=== PATIENT | female | born 1955 | race African-American/Black ===

== ENCOUNTER 2017-01-04 03:47 | Inpatient (IN) | payer MEDICARE, OTHER ==
--- NOTE | ~2017-01-04 | CT57 ---
[facility] A Service of [facility] RADIOLOGY TEXT RESULTS PATIENT: RIC HERRERA LOCATION: C3A 333-01 : 59 UNIT #: [id number] AGE: [address]: Meredith Pan MD SEX: F ORDER DR: [id number] [facility] [address] [facility]. [place], [place] [address] [id number] I MR#: [id number] Acc #: [id number] NAME: RIC HERRERA : 1955 SEX: F STUDY DATE/TIME: 01/05/2017 16:31 UNIT: C3A PCU ROOM: 333 STUDY DESCRIPTION: CT Chest Wo Cont Attending Physician: Meredith Pan M.D. Ordering Physician: Meredith Pan M.D. Primary Care Physician: Primary Care Physician No MEDICAL IMAGING REPORT This report is preliminary unless electronic signature is present EXAM CT of the chest without contrast INDICATIONS Shortness of breath for 1 day. Patient arrived via EMS today on BiPAP. TECHNIQUE Axial CT images were obtained from the thoracic inlet through the dome of the diaphragm. No intravenous contrast material was administered. This CT exam was performed with one or more of the following radiation dose reduction techniques: Automatic exposure control, adjustment of mA and/or kV according to patient size, and iterative reconstruction. FINDINGS This patient has a right internal jugular vein tunneled dialysis catheter. There is cardiomegaly and fairly extensive ground-glass infiltrates which I think potentially may reflect some vascular congestion. Nonspecific pneumonitis would be another consideration. Patient does have a left upper lobe pulmonary nodule measuring about 9 mm in size. This has been present on exams dating back to 2015 and, thus, is felt to be benign. The thyroid gland is within normal limits. Trachea and esophagus also appear unremarkable. There are coronary artery calcifications. Thoracic aorta measures within normal size limits. There are trace bilateral pleural effusions, right greater than left, as well as some right basilar consolidation, which is favored to represent some atelectasis with some milder atelectasis noted at the left lung base. Dense calcifications are seen within the gallbladder and, in fact, the gallbladder wall does appear to be partially calcified; this has been seen on prior studies. Patient has a lipid-rich adrenal adenoma on the left, which is unchanged when compared to the prior exam. Kidneys are atrophic, in keeping with history of end-stage renal disease. No other acute STS. [facility] A Service of [facility] RADIOLOGY TEXT RESULTS PATIENT: RIC HERRERA LOCATION: C3A 333-01 : 59 UNIT #: [id number] AGE: [address]: Meredith Pan MD SEX: F ORDER DR: abnormalities are seen within the upper abdomen. Review of bony windows does not demonstrate any aggressive osseous abnormalities. IMPRESSION 1. Patient is noted to have marked cardiomegaly. There is interlobular septal thickening and some diffuse ground-glass infiltrates seen throughout the lungs. Findings certainly could reflect vascular congestion. Nonspecific pneumonitis would also be in the differential. 2. Trace bilateral pleural effusions right greater than left, as well as bibasilar atelectasis, right greater than left. 3. Right internal jugular vein tunneled dialysis catheter extends into the right atrium. 4. Lipid-rich left adrenal adenoma. 5. Cholelithiasis as well as dense calcification of the gallbladder wall. 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 Similar findings were present on prior study from November 2014, but certainly consideration for surgical consultation on a non-emergent outpatient basis could be considered. 6. Stable left upper lobe pulmonary nodule unchanged since November 2014, and thus is benign. Dictated by... Leann Hager M.D. THIS IS AN ELECTRONICALLY VERIFIED REPORT Leann Hager M.D. at 01/06/2017 5:27 PM AFF/psc TD: 01/05/2017 21:23 JOB #: [id number] MEDICAL IMAGING REPORT COPY
--- NOTE | ~2017-01-04 | CR72 ---
[facility] A Service of [facility] RADIOLOGY TEXT RESULTS PATIENT: RIC HERRERA LOCATION: A 333-01 : 59 UNIT #: [id number] AGE: [address]: Meredith Pan MD SEX: F ORDER DR: [id number] [place] [id number] [facility]. [place], [place] [address] [id number] MR#: [id number] Acc #: [id number] NAME: RIC HERRERA : 1955 SEX: F STUDY DATE/TIME: 01/04/2017 4:10 UNIT: CEDOF ROOM: 63046 STUDY DESCRIPTION: CR Chest Single View Portable Attending Physician: Meredith Pan M.D. Ordering Physician: Shaquille Mccall M.D. Primary Care Physician: Primary Care Physician No MEDICAL IMAGING REPORT This report is preliminary unless electronic signature is present EXAM Portable AP view of the chest COMPARISON December 28, 2014 and December 27, 2014. INDICATION 61-year-old female with dyspnea tonight requiring CPAP. FINDINGS Hemodialysis type catheter is noted with the tip terminating in the SVC at the level of the cavoatrial junction. There is no evidence of pneumothorax. Heart size appears normal but there are increased interstitial opacities throughout the lungs with pulmonary vascular indistinctness. Given ongoing dialysis, this may represent noncardiogenic pulmonary edema. There may be minimal trace left pleural effusion. No pneumothorax. IMPRESSION 1. Adequate position of right internal jugular approach hemodialysis catheter with the tip terminating near the cavoatrial junction. 2. Diffuse opacities throughout the lungs with normal heart size. The appearance, however, would suggest diffuse pulmonary edema, possibly due to fluid overload in this hemodialysis patient. Infection cannot entirely be excluded. Clinical correlation recommended. Questionable trace left pleural effusion. Dictated by... Mikel Johnston M.D. THIS IS AN ELECTRONICALLY VERIFIED REPORT Mikel Johnston M.D. at 01/09/2017 8:59 PM ANJU/kartik [facility] A Service [facility] RADIOLOGY TEXT RESULTS PATIENT: RIC HERRERA LOCATION: [facility] 333-01 : 59 UNIT #: [id number] AGE: [address]: Meredith Pan MD SEX: F ORDER DR: TD: 01/04/2017 09:30 JOB #: [id number] MEDICAL IMAGING REPORT COPY
--- NOTE | ~2017-01-04 | US146 ---
[facility] A Service of [facility] RADIOLOGY TEXT RESULTS PATIENT: RIC HERRERA LOCATION: C3A PC : 59 UNIT #: [id number] AGE: [address]: Meredith Pan MD SEX: F ORDER DR: [id number] [facility] [address] [facility] [place], [place] [address] [id number] I MR#: [id number] Acc #: [id number] NAME: RIC HERRERA : 1955 SEX: F STUDY DATE/TIME: 01/05/2017 20:58 UNIT: C3A PCU ROOM: [address] [place] [address] DESCRIPTION: US Vein Map Hemodial Access Attending Physician: Meredith Pan M.D. Ordering Physician: Stefano Merchant Jr., M.D. Primary Care Physician: Primary Care Physician No MEDICAL IMAGING REPORT This report is preliminary unless electronic signature is present EXAM Ultrasound vein mapping for hemodialysis access DATE 01/05/2017 HISTORY Right AV fistula rupture in September 2016. Chronic kidney disease on dialysis. FINDINGS The patient refused to allow the technologist to scan the right arm. The patient stated that if the right arm was scanned, she would refuse the examination. Therefore, the technologist complied with the patient's wishes and only examined the left arm. Measurements submitted in this report are in mm. Left cephalic vein upper segment proximal 1.5, mid 1.1, distal 0.8, elbow 0.9. Left cephalic vein lower segment proximal 2.6, mid 2, distal 1.2. Left basilic vein upper segment proximal 3.4, mid 3.5, distal 4.7, at elbow 4.3. Left basilic vein lower segment proximal 4.3, mid 2.8, distal 2.3. No thrombus is seen. IMPRESSION 1. The patient refused to allow the technologist to scan the right arm. [facility] A Service [facility] RADIOLOGY TEXT RESULTS PATIENT: RIC HERRERA LOCATION: C3A : 59 UNIT #: [id number] AGE: [address]: Meredith Pan MD SEX: F ORDER DR: 2. Left upper extremity vein mapping measurements as described above in the report. Dictated by..Anya Park/joelle TD: 01/06/2017 02:24 JOB #: [id number] MEDICAL IMAGING REPORT
--- NOTE | ~2017-01-04 | HP ---
Unit #: [id number] #: [id number] Patient: RIC HERRERA [id number] [address] [place], [place] [address] [id number] I MR#: [id number] NAME: RIC HERRERA ROOM: 47036 Age: 61 Sex: F Admission Date: 01/04/2017 : 1955 Attending Physician: Meredith Pan M.D. Primary Care Physician: No Primary Care Physician HISTORY AND PHYSICAL CHIEF COMPLAINT Shortness of breath. HISTORY OF PRESENT ILLNESS Ms. Herrera is a 61-year-old -[place] female who presents to the emergency department with shortness of breath. The patient is maintained on hemodialysis Monday, Monday, Monday and states she has been compliant with hemodialysis. She last went on Monday, January 02, and completed the whole course of treatment. She states abruptly last night at approximately 8 p.m., she became short of breath. She had, perhaps, mild productive cough a few days prior to that given her grandchildren had been sick. She denied any fever at home. She denied any chest pain. She does not endorse any new lower extremity edema. Upon arrival to the emergency department, patient was tachycardic with a heart rate of 124 and temperature was 100.2. The patient arrived on BiPAP via EMS. Blood work reveals a mildly elevated white blood cell count of 13.3 and chest x-ray is most consistent with pulmonary edema. The patient was given a gram of Tylenol and subsequently has been admitted. She states she is feeling much better since being on the BiPAP. Again, she denies any other symptoms. The patient has a history of AIDS and has not taken her highly active antiretroviral therapy since July and was previously followed at the [facility]. She does not know her CD4 count. PAST MEDICAL HISTORY 1. AIDS. Again, patient is followed at the [address] [place] [address]. She has not taken any medication since the fall of 2015. Her last known CD4 count to us was 121 in 2014 and she does not recall her most recent CD4 count. 2. End stage renal disease, maintained on hemodialysis Monday, Monday, Monday. She has seen Dr. Lopez in the past. 3. Hypertension. 4. Chronic diastolic congestive heart failure. Her echocardiogram in 2015 revealed an ejection fraction of 65%. 5. Pulmonary hypertension, per record review. However, right ventricular systolic pressure is not reported on echocardiogram from 2015. 6. Prior history of stroke. 7. Medical noncompliance. 8. Tobaccoism. PAST SURGICAL HISTORY 1. AV fistula formation of right upper extremity. 2. Bronchoscopy in November 2014 which revealed right lower lobe mucus plugging. Unit #: [id number] #: [id number] Patient: RIC HERRERA ALLERGIES No known drug allergies. MEDICATIONS Home medications I believe at this time are essentially none. Records from patient's pharmacy indicate she was previously takin. Norvasc 10 mg daily. 2. Colace, one tablet b.i.d. 3. [place] 5/325, one tablet q.6 hours p.r.n. for pain. 4. Lamivudine 100 mg, half a tablet daily. 5. Lisinopril 40 mg p.o. daily. 6. Magnesium oxide 400 mg daily. 7. Metoprolol succinate 100 mg daily. 8. Norvir 100 mg daily. 9. Reyataz 300 mg daily. I will note - Reyataz, Norvir, metoprolol, lamivudine do appear to have been last filled in April 2016 and she may have had three months prescriptions. Norvasc has not been filled since April 2016 and lisinopril was filled in October 2016. FAMILY HISTORY Significant for hypertension. SOCIAL HISTORY Patient does drink alcohol socially. She smokes about three cigarettes per day and states she smoked for "a long time" which I anticipate is several decades. She denies any illicit drug use. REVIEW OF SYSTEMS GENERAL: She states she has been losing weight despite eating more. Again, she denies any chest pain, palpitations, orthopnea. Does have mild cough. No constipation, diarrhea, melena, hematochezia. No headache, no sore throat, no fever prior to presentation here. No new joint pain, no new rashes, no falls. Otherwise, ten point review of systems was reviewed and is negative. PHYSICAL EXAMINATION VITAL SIGNS: Temperature 100.2, blood pressure 162/94, initial pulse rate 124, now down to 73, respiratory rate 21. Oxygen saturations are 100% on BiPAP at 14/6. GENERAL: The patient is awake, alert, oriented x3. HEENT: Pupils equally round, reactive to light bilaterally. Anicteric sclerae. No conjunctival pallor. Missing several teeth. Otherwise, oral examination cannot be done given patient is on BiPAP. NECK: Supple. No lymphadenopathy, no thyromegaly, no appreciable JVD. HEART: Regular rate and rhythm without murmur, rub or gallop. LUNGS: Crackles in all four lung ness posteriorly. ABDOMEN: Soft, nontender, nondistended. Positive bowel sounds. No appreciable hepatosplenomegaly. EXTREMITIES: No cyanosis. Mild clubbing and 1+ pitting edema. Pedal pulses 2/4. SKIN: Warm, it is dry. No appreciable rash. NEUROLOGICAL: Cranial nerves II-XII intact. Sensation, strength and deep tendon reflexes grossly appear normal on examination. Gait was not assessed. MUSCULOSKELETAL: No significant joint abnormalities noted. Unit #: [id number] #: [id number] Patient: RIC HERRERA PSYCHIATRIC: Alert and oriented x3. No suicidal or homicidal ideation. DIAGNOSTIC STUDIES LABORATORY: Lab work done in the emergency department reveals sodium 138, potassium 4.5, chloride of 101, bicarb 24, BUN 37, creatinine of 10.1, glucose of 204. White blood cell count 13.3, hemoglobin 12.6, platelet count of 268,000. Troponin was negative. An influenzae swab was also negative. Lactic acid mildly elevated at 2.8. CARDIOVASCULAR: EKG reveals a mildly prolonged QT of [address] other acute ST or T wave abnormalities. Chest x-ray reveals what appears to be significant pulmonary edema. ASSESSMENT 1. Acute hypoxic respiratory failure. 2. Acute pulmonary edema. 3. Systemic inflammatory response syndrome versus sepsis. 4. Questionable pneumonia. 5. AIDS with unknown CD4 count and medical noncompliance. 6. End stage renal disease, maintained on hemodialysis Monday, Monday, Monday. 7. History of diastolic congestive heart failure. 8. Hyperglycemia. 9. Hypertension. 10. History of pulmonary hypertension. 11. Tobaccoism. 12. History of stroke. 13. Medical noncompliance. PLAN 1. Will admit patient to ICU given she is being maintained on BiPAP. However, I will note she is refusing blood draws including blood cultures and ABGs at this time. I am going to ask Dr. Perez to evaluate the patient for his clinical opinion. I am going to recheck chest x-ray following hemodialysis and, if there is significant clearing, indeed this is primarily pulmonary edema. If patient continues to improve prior to hemodialysis, I may try on Oxymizer and place her back on BiPAP if she becomes increasingly hypoxic. 2. Will consult Dr. Merchant in regards to patient's end stage renal disease and dialysis orders have already been placed for today. 3. I am going to empirically give patient a dose of vancomycin and start her on Zosyn given it is unclear whether she has pneumonia particularly given this mildly elevated temperature and her white blood cell count. However, these both may simply be reactive in origin. Will obtain sputum gram stain and culture and, again, patient is refusing blood cultures. Will also try to get copy of most recent CD4 count from the [facility] given this may change the differential diagnosis for this patient. 4. Will obtain most recent CD4 count here and again last note from [facility] patient on Accu-Cheks a.c. and h.s. with associated low dose sliding scale in regards to hyperglycemia. 6. Will place patient on Norvasc 5 mg daily and monitor blood pressure. 7. Will get copy of most recent echo to chart. Perhaps there is one more recent than 2015. 8. DVT and GI prophylaxis. Unit #: [id number] #: [id number] Patient: RIC HERRERA Time spent on ICU admission - 47 minutes. Dictated by Meredith Pan M.D. PAULINA/josee TD: 01/04/2017 09:07 JOB #: [id number] HISTORY AND PHYSICAL X Meredith Pan MD X HISTORY AND PHYSICAL
--- NOTE | ~2017-01-04 | CR72 ---
[facility] A Service of [facility] RADIOLOGY TEXT RESULTS PATIENT: RIC HERERRA LOCATION: [facility] 333-01 : 59 UNIT #: [id number] AGE: [address]: Meredith Pan MD SEX: F ORDER DR: [id number] [facility] [address] [facility]. [place], [place] [address] [id number] MR#: [id number] Acc #: [id number] NAME: RIC HERRERA : 1955 SEX: F STUDY DATE/TIME: 01/05/2017 5:48 [facility] STUDY DESCRIPTION: CR Chest Single View Portable Attending Physician: Meredith Pan M.D. Ordering Physician: Josse Perez M.D. Primary Care Physician: Primary Care Physician No MEDICAL IMAGING REPORT This report is preliminary unless electronic signature is present EXAM Portable chest 01/05/2017 INDICATION Shortness of air, cough, symptoms for 2 nights. COMPARISON 01/04/2017. FINDINGS This portable view of the chest is compared with yesterday's study. There has been an improvement in the bilateral interstitial prominence. Some still remains but is definitely decreased. There is blunting of the left costophrenic angle. The central venous catheter is in good position. The heart is mildly enlarged. Dictated by... Cory Malone M.D. THIS IS AN ELECTRONICALLY VERIFIED REPORT Cory Malone M.D. at 01/05/2017 10:06 AM LIZETH/iesha TD: 01/05/2017 08:21 JOB #: [id number] MEDICAL IMAGING REPORT COPY
--- NOTE | ~2017-01-04 | CO ---
Unit #: [id number] #: [id number] Patient: RIC HERRERA [id number] [facility] [address] [facility]. [place], [place] [address] [id number] MR#: [id number] NAME: RIC HERRERA ROOM: 333 Age: 61 Sex: F Admission Date: 01/04/2017 : 1955 Attending Physician: Meredith Pan M.D. Primary Care Physician: Primary Care Physician No Consultation Date: 01/05/2017 CONSULTATION REPORT for Jese Muhammad M.D. REASON FOR CONSULTATION Hemodialysis access. HISTORY OF PRESENT ILLNESS This is a 61-year-old, female, currently admitted to [facility] with an episode of shortness of air. She has a history of end-stage renal disease and has previously seen Dr. Talamantes in the past. The patient reports she was visiting a friend in [place] in 08/2016 when "my fistula exploded." Observing her right arm scars, it appears that her previous right arm fistula was a right brachial basilic fistula. She also has an extensive scar extending down her right forearm, which she reports was utilized and created during the fistula ligation. She reports a vein was taken from the forearm to use for the repair. No operation reports available for that surgery as that was done in [place]. The patient reports that she had a right subclavian hemodialysis access twice in [place] at that time as well. She reports she was went back to Dr. Talamantes one time after her fistula ligation and tunneled catheter placement; however, her insurance changed and she was unable to go back for creation of a new dialysis access and has been using the tunneled catheter since 08/2016. She dialyzes on Monday, Monday, and Monday. Ms. Herrera is right handed. PAST MEDICAL HISTORY Significant for; 1. HIV. 2. End-stage renal disease. 3. Hypertension. 4. Tobacco use. 5. Noncompliance with medical therapy. 6. Previous right brachial basilic fistula placement. 7. Congestive heart failure. ALLERGIES No known drug allergies. MEDICATIONS The patient has no home medications listed. Previously she had been on a regimen documented as Norvasc, Colace, lamivudine, lisinopril,magnesium, metoprolol, Norvir, Reyataz, however, she has failed to obtain these prescriptions for several months. SOCIAL HISTORY Unit #: [id number] #: [id number] Patient: RIC HERRERA The patient resides in [place]. She denies alcohol or drug use. She reports a history of smoking approximately 3 to 4 cigarettes daily. FAMILY HISTORY Mother and father both alive. No health history volunteered for mother and father. REVIEW OF SYSTEMS GENERAL: No fever, chills, or sweats. HEENT: Eyes; negative. Ear, nose, mouth, and throat; negative. RESPIRATORY: Shortness of air on admit. CARDIOVASCULAR: Negative. GASTROINTESTINAL: Negative. GENITOURINARY: Negative. HEME/LYMPH: Negative. ENDOCRINE: Negative. MUSCULOSKELETAL: Negative. INTEGUMENTARY: Negative. NEUROLOGIC: Negative. PSYCHIATRIC: Negative. PHYSICAL EXAMINATION VITAL SIGNS: Include temperature 98.2, heart rate 75, respirations 20, O2 saturation 99%, blood pressure 219/122 documented at 8:15 a.m. GENERAL APPEARANCE: Well-developed, well-nourished female, in no acute distress. Fair historian. Relatively stoic. Answers questions when prompted, but does not willingly volunteer information. HEENT: Normocephalic. Pupils equal, round, and reactive. NECK: No carotid bruits noted on auscultation. CARDIAC: Regular rate and rhythm. No murmurs noted. LUNGS: Crackles noted in all ness. The patient is on 5 L Oxymizer for oxygenation. Respirations are nonlabored. ABDOMEN: Positive bowel sounds. Soft, nontender. No distention. MUSCULOSKELETAL: Moves all extremities with full range of motion. EXTREMITIES: Upper extremity, well-healed scar along the inner right arm extending down through the forearm. Right brachium distal scar has a small lump in the midportion which has a palpable pulse, but no thrill. Lower extremities, skin is dry. No deformity is noted. No edema. VASCULAR: Palpable radial and femoral pulses bilaterally. DP/PT pulses are not assessed as the patient is wearing shoes and was unwilling to remove them for the exam. INTEGUMENTARY: Overall skin is warm and dry. Lower extremity skin, dry and scaly. No obvious sores, lesions, or nonhealing wounds. NEUROLOGIC: Cranial nerves II through XII grossly intact. Normal strength and sensation bilaterally. PSYCHIATRIC: Oriented to person, place, and time. DIAGNOSTIC STUDIES IMAGING STUDIES: Vein mapping pending. LABORATORY RESULTS: Sodium 138, potassium 4.5, chloride 101, bicarb 24, BUN 37, creatinine 10.1, glucose 204. INR 1. Hemoglobin 11.3, hematocrit 34.4, WBC 6.1, and platelets 156. ASSESSMENT AND PLAN 1. End-stage renal disease. 2. Need for hemodialysis access. 3. Status post right tunneled dialysis catheter placement in 08/2016. Unit #: [id number] #: [id number] Patient: RIC HERRERA 4. Monday, Monday, and Monday hemodialysis. IMPRESSION The patient will need vein mapping of her bilateral upper extremities. The patient reports she does not want any further access in her right arm as she is right handed. I suspect her vasculature will be small in her left arm, given the fact that the patient is right handed and underwent right brachial basilic fistula creation initially. Vein mapping will determine if her left arm veins are adequate for fistula creation; however, if they proved to be too small, we can consider shunt placement. The patient has the tunneled catheter in her right subclavian which can continued to be used for hemodialysis. If she is close to discharge, we can arrange for long-term dialysis access creation surgery on an outpatient basis; however, if she remains hospitalized, we will work towards surgery this admission. Thank you for allowing us to participate in the care of this patient. Dictated byNitesh. Jose Luis Gil APRN for Anya Dixon/angela TD: 01/06/2017 06:18 JOB #: [id number] CONSULTATION REPORT X X CONSULTATION REPORT
--- NOTE | ~2017-01-04 | CO ---
Unit #: [id number] #: [id number] Patient: RIC HERRERA [id number] [address] [address] [id number] I MR#: [id number] NAME: RIC HERRERA ROOM: 333 Age: 61 Sex: F Admission Date: 01/04/2017 : 1955 Attending Physician: Meredith Pan M.D. Primary Care Physician: No Primary Care Physician Consultation Date: 01/04/2017 CONSULTATION REPORT REASON FOR CONSULTATION Shortness of breath, abnormal chest x-ray. HISTORY OF PRESENT ILLNESS 61-year-old female who has HIV, noncompliant with medications at home, end stage kidney disease with stated compliance with dialysis. She did admit to increasing shortness of breath and she would be placed on intermittent oxygen at dialysis. Generally, her shortness of breath would improve after dialysis. There was no documented hypoxemia per her history. She denies fever, sputum production, hemoptysis, chest pain, pleurisy. She initially was on BiPAP, now she is on nasal cannula Oxymizer and saturations are 100%. PAST MEDICAL HISTORY 1. HIV/AIDS. 2. End stage kidney disease. 3. Diastolic heart failure. 4. Past history of stroke. 5. Tobacco abuse. 6. Of note, she did undergo a bronchoscopy in November 2014 which was negative for immunocompromised infections. MEDICATIONS Medications at home - she really was not taking any medications. She is on no inhaled medications at home and no oxygen at home. ALLERGIES No known medical allergies. FAMILY HISTORY Hypertension. SOCIAL HISTORY She does smoke. REVIEW OF SYSTEMS She denies any change in her diet. No abdominal pain, melena, hematochezia, hematuria, dysuria, focal weakness, paresthesias, leg pain, swelling, fever, chills. There may have been some weight loss. Further review of systems negative. PHYSICAL EXAMINATION GENERAL: Reveals a patient who is very comfortable on nasal cannula Oxymizer. Unit #: [id number] #: [id number] Patient: RIC HERRERA VITAL SIGNS: T-max is 100.2, pulse 73, respiratory rate 21, blood pressure is 162/94. She is 5 foot 7, 167 pounds. HEENT: Pupils equal, round, reactive to light. Sclerae anicteric. Head atraumatic. Neck supple. No supraclavicular or cervical adenopathy appreciated. Mucous membranes moist. CHEST: Crackles bilaterally. No consolidation, no wheeze. CARDIAC EXAMINATION: Reveals regular rate and rhythm. No pathologic murmur, rub or gallop. ABDOMEN: Soft, nontender. No hepatomegaly or rebound. EXTREMITIES: No clubbing, cyanosis or edema. No calf tenderness. SKIN: Warm and dry without rash or diaphoresis. NEUROLOGICAL: Grossly intact. DIAGNOSTIC STUDIES LABORATORY: She had a BUN of 37, creatinine of 10.1. BNP 2625. INR normal. White blood cell count 13, hemoglobin 12.6, platelet count 268. Flu screen negative. Blood cultures were ordered but the patient refused and, in fact, she refused any other blood workup. In fact, she has been refusing repeat temperature, etc. IMAGING: Chest x-ray consistent with pulmonary edema. CARDIOVASCULAR: EKG - sinus tachycardia. Possible biatrial enlargement. No definite acute ischemic changes. IMPRESSION 1. Shortness of breath, most likely pulmonary edema. 2. Chest x-ray consistent with pulmonary edema. 3. HIV, low grade temp, consider pneumonia. 4. Noncompliant with medications and now refusing testing and even vital signs. 5. End stage kidney disease. 6. Medical problems listed above. PLAN Urgent dialysis, antibiotics for now. Oxygen to maintain adequate saturations. She will be re-evaluated after dialysis. Certainly, if she continues to be febrile and has pulmonary infiltrates, bronchoscopy would be indicated and this has been briefly discussed with the patient. If her pulmonary infiltrates resolve and her fever resolves, then my guess is this is all related to pulmonary edema and I would consider more aggressive volume removal in the future. Thank you very much for allowing me to participate in the care of this patient. Dictated by... Josse Perez M.D. Unit #: [id number] #: [id number] Patient: RIC HERRERA STEWART/josee TD: 01/05/2017 06:41 JOB #: [id number] CONSULTATION REPORT X Josse Perez MD X CONSULTATION REPORT
--- NOTE | ~2017-01-04 | CR63 ---
[facility] A Service of [facility] & [facility] RADIOLOGY TEXT RESULTS PATIENT: RIC HERRERA LOCATION: C3A 333-01 : 59 UNIT #: [id number] AGE: [address]: Meredith Pan MD SEX: F ORDER DR: [id number] [facility] [address] [facility]. [place], [place] [address] [id number] MR#: [id number] Acc #: [id number] NAME: RIC HERRERA : 1955 SEX: F STUDY DATE/TIME: 01/04/2017 14:59 UNIT: A U ROOM: [facility] STUDY DESCRIPTION: CR Chest 2 View Attending Physician: Meredith Pan M.D. Ordering Physician: Meredith Pan M.D. Primary Care Physician: Primary Care Physician No MEDICAL IMAGING REPORT This report is preliminary unless electronic signature is present EXAM PA and lateral chest, 01/04/2017 at 14:59 HISTORY 61-year-old female with respiratory failure starting last night. Patient has shortness of breath and chest pain. Cough also present. FINDINGS In comparison to the previous exam of 01/04/2017 at 04:10 hours there has been no change in the right subclavian central line. The heart remains borderline normal in size and no new pulmonary infiltrate or opacity is seen. No pneumothorax or pleural effusion is noted. Atelectasis in the left lung base is present. This is unaltered from the previous. IMPRESSION Stable chest with no new pulmonary infiltrate or opacity. Heart remains borderline enlarged and right subclavian central catheter in place. STAT * RESULT Dictated by... Sam Daniel M.D. THIS IS AN ELECTRONICALLY VERIFIED REPORT Sam Daniel M.D. at 01/04/2017 8:44 PM Yris TD: 01/04/2017 15:31 JOB #: [id number] MEDICAL IMAGING REPORT COPY
--- NOTE | ~2017-01-04 | EKG ---
PATIENT: RIC HERRERA UNIT #: [id number] Ventricular Rate: 103 BPM Atrial Rate: 103 BPM P-R Interval: 146 ms QRS Duration: 88 ms Q-T Interval: 388 ms QTC Calculation(Bezet): 508 ms P [place]: 60 degrees Calculated R [place]: 21 degrees Calculated T [place]: 81 degrees Diagnosis Line: Sinus tachycardia Diagnosis Line: T wave abnormality, consider anterolateral Diagnosis Line: ischemia Abnormal ECG Diagnosis Line: When compared with ECG of 04-JAN-2017 03:27, Diagnosis Line: (unconfirmed) Diagnosis Line: No significant change was found Diagnosis Line: Confirmed by NOEMY FOREMAN MD ([id number]) on 01/05/2017 Diagnosis Line: 11:15:06 AM INTERPRETING MD: AHSAN FLORENTINO
--- NOTE | ~2017-01-04 | CO ---
Unit #: [id number] #: [id number] Patient: RIC HERRERA [id number] [facility]. [place], [place] [address] [id number] Freda MR#: [id number] NAME: RIC HERRERA ROOM: 333 Age: 61 Sex: F Admission Date: 01/04/2017 : 1955 Attending Physician: Meredith Pan M.D. Primary Care Physician: No Primary Care Physician Consultation Date: 01/04/2017 CONSULTATION REPORT NEPHROLOGY CONSULTATION REASON FOR CONSULT Dialysis needs. HISTORY OF PRESENT ILLNESS Ms. Herrera is a 61-year-old -Maldivian female well known to me as I see her at the dialysis unit at [facility] on her Monday, Monday, Monday schedule, who presented to the hospital with shortness of breath. The patient states that she has been to dialysis both Monday and Monday. I did discuss with the dialysis staff this morning and patient has been reluctant to take extra fluid off despite her coming in with shortness of breath and hypertension. I was called overnight for the chest x-ray findings of pulmonary edema and have ordered dialysis. Dialysis is still pending this morning. She was initially on BiPAP and breathing well on oxygen per nasal cannula at this time. She denies any chest pain. No urinary complaints. She does have some swelling. No chills present. The patient does have a history of noncompliance, in particular with blood pressure medication. Also, per the admission note, she has been off of her HIV medicines for several months. She is usually followed in the [facility]. PAST MEDICAL HISTORY Significant for: 1. End stage renal disease. 2. Hypertension. 3. AIDS. 4. Chronic diastolic congestive heart failure. 5. Pulmonary hypertension. 6. History of stroke. 7. History of noncompliance. 8. Tobacco abuse. 9. History of pneumonia and respiratory failure in the past. PAST SURGICAL HISTORY 1. AV fistula in the right arm which had to be tied off due to a bleed. 2. History of bronchoscopy. MEDICATIONS Home medication list is currently being obtained. Again, she is not taking any of her HIV medication. BP meds are amlodipine 10 mg a day, lisinopril either 20 or 40 mg daily, and metoprolol XL 100 mg a day. ALLERGIES Unit #: [id number] #: [id number] Patient: RIC HERRERA She has no known drug allergies. FAMILY HISTORY Significant for hypertension. SOCIAL HISTORY The patient does drink occasionally. She continues to smoke. She denies drug use. REVIEW OF SYSTEMS A complete twelve point review of systems was completed with the above findings. In addition, she denies any headaches, no sinus drainage, no sore throat or earache, no chest pain or palpitations. Some cough, no hemoptysis. Denies nausea, vomiting or diarrhea. No rash or itching. No flank pain. She has had a low grade fever here in the ER. No bleeding issues, no recent weight changes. Unless otherwise indicated, the review of systems was negative. PHYSICAL EXAMINATION VITAL SIGNS: Temp 100.2, pulse 66, respiratory rate 18, blood pressure 161/78. Blood pressure was as high as 204/114 on admission. GENERAL: This is a pleasant 61-year-old -Maldivian female sitting in bed comfortable, in no acute distress. HEENT: Head is atraumatic, normocephalic. Eyes show pink conjunctivae but no scleral icterus. No nasal drainage or nose bleed. Oropharynx is moist. NECK: No rigidity. HEART: Regular rate and rhythm with no significant murmur or rub appreciated. LUNGS: Scattered rales bilaterally without wheezing. Breathing is nonlabored at rest. ABDOMEN: Soft, nontender. Bowel sounds are present. EXTREMITIES: No lower extremity clubbing or cyanosis. She has 1+ pitting edema below the knees bilaterally. SKIN: Without rashes. VASCULAR EXAM: The patient has a tunneled catheter in her chest without drainage. She has an old tied off fistula in the right arm with scar. NEUROLOGICAL EXAM: No focal deficits. PSYCHIATRIC EXAM: Mood and affect appear normal. DIAGNOSTIC STUDIES IMAGING: Chest x-ray showed diffuse pulmonary edema. Flu screen was negative. BNP was 2600. CBC showed a white count of 13, hemoglobin of 12, platelet count 268. Chemistry - sodium 138, potassium 4.5, bicarb 24. BUN and creatinine were 37 and 10 respectively. Lactic acid was 2.8. INR 1. Troponin negative. ASSESSMENT AND PLAN 1. End stage renal disease: I have ordered dialysis for today and will also order it for tomorrow for excess volume. The patient is agreeable. 2. Hypertension: We will resume her home medicines and pull fluid as her blood pressure allows. 3. Anemia of chronic disease: Hemoglobin is noted and there is no need for any Epogen at this time. 4. HIV with AIDS: CD4 count is pending. Unit #: [id number] #: [id number] Patient: RIC HERRERA 5. Tobacco abuse. 6. Questionable pneumonia with elevated white count and elevated lactic acid level. Antibiotics have been started. 7. Pulmonary hypertension. 8. History of stroke. 9. History of noncompliance. 10. Patient does need a fistula for dialysis. She would like to change her vascular surgery team over to [place]. I will ask them to see and see if a fistula can be placed as an outpatient. I would like to thank Dr. Gabi Pan for this consultation and the opportunity to participate in the evaluation and care of Ms. Herrera. Dictated by... Stefano Merchant Jr., MPeggy. TIFFANY/josee TD: 01/05/2017 08:08 JOB #: [id number] CONSULTATION REPORT X Stefano Merchant MD CONSULTATION REPORT
--- NOTE | ~2017-01-04 | DS ---
Unit #: [id number] #: [id number] Patient: RIC HERRERA [id number] [address] [address] [id number] I MR#: [id number] NAME: RIC HERRERA ROOM: 333 Age: 61 Sex: F Admission Date: 01/04/2017 : 1955 Discharge Date: 01/06/2017 Attending Physician: Meredith Pan M.D. Primary Care Physician: No Primary Care Physician DISCHARGE SUMMARY PRINCIPAL DIAGNOSES 1. Acute hypoxic respiratory failure secondary to pulmonary edema. 2. Pulmonary edema secondary to noncompliance with hemodialysis. 3. Acute bronchitis. 4. Sepsis secondary to acute bronchitis versus pneumonia. 5. Acquired immunodeficiency syndrome with unknown CD4 count and noncompliance with highly active antiretroviral therapy. 6. Endstage renal disease, maintained on hemodialysis Monday, Monday and Monday. 7. Hyperglycemia with likely underlying insulin resistance versus diabetes mellitus type 2. 8. Hypertension, uncontrolled. 9. Chronic diastolic congestive heart failure with ejection fraction of 65%. 10. Pulmonary hypertension. 11. Tobaccoism. 12. Medical noncompliance. 13. Abnormal appearance of gallbladder on computed tomographic scan of the chest. CONSULTANTS 1. Dr. Merchant, nephrology. 2. Dr. Perez, pulmonology. 3. Dr. Samuel, vascular surgery. PROCEDURES Emergent hemodialysis, which the patient tolerated without complication. DIAGNOSTIC STUDIES IMAGING: Chest x-ray on January 04, 2017 with diffuse opacities throughout the lung consistent with edema. Chest x-ray on January 04, 2017 with no acute pulmonary infiltrate. Chest x-ray on January 05, 2017 with significant improvement in interstitial prominence. CT of the chest without contrast on January 05, 2017 with cardiomegaly with interlobular thickening and diffuse ground glass infiltrates throughout both lungs. Trace bilateral pleural effusions, right greater than left noted. Right internal jugular vein tunneled hemodialysis catheter note. Lipid-rich adrenal adenoma noted. Cholelithiasis and dense calcification of the gallbladder wall. Unit #: [id number] #: [id number] Patient: RIC HERRERA CLINICAL HISTORY AND HOSPITAL COURSE Ms. Herrera is a 61-year-old female on chronic hemodialysis who presented to the emergency department with shortness of breath. She arrived via EMS on BiPAP therapy due to significant hypoxia and altered mental status. The patient was found to be mildly febrile in the emergency department and was also tachycardic. Chest x-ray was most consistent with pulmonary edema; however, the patient has a history of AIDS with an unknown CD4 count and is noncompliant with HAART therapy. She was admitted from the ER, admitted initially to the ICU. The patient remained in the ER due to bed availability and emergently underwent hemodialysis per Dr. Merchant. Following dialysis, the patient's hypoxia resolved. In fact, she was off BiPAP therapy even prior to hemodialysis. Her hypoxia has completely resolved, and she is now on room air with sats in the upper 90s to 100. Her chest x-ray also cleared significantly. I will note procalcitonin, however, was found to be elevated at 7, and for this reason, even though she clinically appeared well and had no further fever, she underwent a CT scan of the chest. These findings were most consistent with pulmonary edema. I am informed by nephrology that the patient does not always allow enough fluid to be taken off with hemodialysis, and this likely resulted in her pulmonary edema and her subsequent respiratory failure. She will continue hemodialysis as outpatient. Dr. Perez was consulted given the patient's respiratory failure. Her case is complicated due to her pulmonary edema, but she is at risk for atypical pneumonia given her report of AIDS. The CT scan of the chest was not consistent with PCP, which was a clinical concern. After discussion with Dr. Perez, the patient has opted to go on Augmentin therapy for 5 days for treatment of, what appears to be, most likely, a bronchitis versus a mild pneumonia. She has been instructed by me and Dr. Perez to return to the ER if she has any recurrent shortness of breath and she may require bronchoscopy at that point. I will note she has refused bronchoscopy during this hospitalization. The patient also was found to have significant hypertension. She has been placed back on her antihypertensives, which she has not taken for approximately 4-5 months, and this can be followed up with hemodialysis. The patient was also found to be hyperglycemic, but hemoglobin A1C was low in this patient but, unfortunately, is unreliable in hemodialysis patients. Blood sugar can be monitored as an outpatient. CT scan of the chest upon evaluation of her respiratory status did reveal a thickening of the gallbladder wall, but this has been present and stable since 2014. 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 The patient has significant medical noncompliance and did refuse many lab draws during hospitalization, and this is simply to be known for the future. Dr. Samuel was consulted given the patient's right upper arm fistula is not functioning well. She has a tunneled hemodialysis catheter now and, again, can see Dr. Samuel as an outpatient for creation of left arm fistula. DISCHARGE CONDITION Unit #: [id number] #: [id number] Patient: RIC HERRERA Stable. DISCHARGE STATUS Discharge to home. DISCHARGE MEDICATIONS 1. Augmentin 875 mg p.o. b.i.d. for 5 days. 2. Norvasc 10 mg each evening. 3. Metoprolol succinate 100 mg daily. 4. Hydralazine 50 mg t.i.d. 5. Lisinopril 40 mg daily NOTE: I will note all blood pressure medications were written for a 90-day prescription with no refill. DISCHARGE INSTRUCTIONS Patient was instructed to follow a low-salt, heart healthy diet. She should monitor her sugar intake. She can increase her activity as tolerated. Will continue hemodialysis Monday, Monday, Monday. FOLLOW-UP 1. Patient will continue hemodialysis Monday, Monday, Monday. 2. She will follow up with Dr. Samuel in approximately 2 weeks for review of her vein mapping and formation of a left upper extremity fistula. Dictated by... Meredith Pan M.D. PAULINA/syed TD: 01/07/2017 15:36 JOB #: [id number] DISCHARGE SUMMARY X Meredith Pan MD X DISCHARGE SUMMARY
[2017-01-04 03:45] LABS: POC - CKMB 2.1 ng/mL (0.0-7.9); POC - TROPONIN <0.05 ng/mL (<=0.05)
[~2017-01-04 03:47] MED LIST: CALCIUM ACETAT667 M1 PO; EPIVIR HBV100 M1 PO; LAMIVUDINE100 MG PO; LISINOPRIL20 MG PO; LOPRESSOR PO; NORVASC10 MG PO; NORVIR100 M1 PO; NORVIR100 MG PO; PHOSLO667 MG PO; REYATAZ300 MG PO; SULFAMETHOXAZO1 EAC1 PO; TOPROL XL100 MG PO; TOPROL XL50 MG PO; VIREAD300 MG PO
[2017-01-04 04:09] LABS: PARTIAL THROMBOPLASTIN TIME 24.7 SECONDS (23.5-31.3); PROTHROMBIN TIME (PATIENT) 10.4 SECONDS (9.6-11.5)
[2017-01-04 04:12] LABS: BASOPHIL# 0.1 X10e3 (0-0.3); BASOPHIL% 0.5 % (0-2.5); DIFF IND YES; EOSINOPHIL# 0.3 X10e3 (0-0.7); EOSINOPHIL% 2.5 % (0.0-7.0); HEMATOCRIT 39.2 % (35.0-45.0); HEMOGLOBIN 12.6 gm/dL (12.0-16.0); LYMPHOCYTE# 5.1 X10e3 (1.0-3.5); LYMPHOCYTE% 38.1 % (17.0-45.0); MEAN CELL VOLUME 92.6 FL (83-96); MEAN CORPUSCULAR HEMOGLOBIN 29.8 PG (28-34); MEAN CORPUSCULAR HGB CONC 32.2 g/dL (30-36); MEAN PLATELET VOLUME 7.5 FL (6.5-11.5); MONOCYTE# 0.6 X10e3 (0-1.0); MONOCYTE% 4.4 % (3.0-12.0); NEUTROPHIL# 7.2 X10e3 (1.5-7.1); NEUTROPHIL% 54.5 % (40-75); PLATELET COUNT 268 X10e3 (140-420); RED BLOOD COUNT 4.23 X10e (3.90-5.30); WHITE BLOOD COUNT 13.3 X10e3 (4.0-10.5)
[2017-01-04 04:21] LABS: BILIRUBIN, DIRECT 0.2 mg/dL (0.0-0.2); BILIRUBIN,INDIRECT 0.6 mg/dL (0.0-0.9); BILIRUBIN,TOTAL 0.8 mg/dL (0.2-2.0); BUN/CREATININE RATIO 3.66; CALCIUM SERUM 8.5 mg/dL (8.4-10.2); CREATININE SERUM 10.1 mg/dL (0.6-1.4); GLOM FILT RATE Estimated 5.1 mL/min (>60); POTASSIUM 4.5 mmol/L (3.5-5.1); PROTEIN TOTAL SERUM 8.3 g/dL (6.0-8.3)
[2017-01-04 04:38] LABS: PLATELET ESTIMATE NORMAL (NORMAL); POIKILOCYTOSIS SL; TEAR DROP CELLS PRESENT
[2017-01-04 05:57] LABS: INFLUENZA A NEG (NEG); INFLUENZA B NEG (NEG)
[2017-01-04] MEDS ORDERED: NO MEDICATIONS (09:44)
[2017-01-04] MEDS ORDERED: NORVASC PO (09:44)
[2017-01-05 09:49] LABS: HEMATOCRIT 34.4 % (35.0-45.0); HEMOGLOBIN 11.3 gm/dL (12.0-16.0); MEAN CELL VOLUME 91.9 FL (83-96); MEAN CORPUSCULAR HEMOGLOBIN 30.1 PG (28-34); MEAN CORPUSCULAR HGB CONC 32.8 g/dL (30-36); MEAN PLATELET VOLUME 7.8 FL (6.5-11.5); RED BLOOD COUNT 3.74 X10e (3.90-5.30)
[2017-01-05 09:50] LABS: WHITE BLOOD COUNT 6.1 X10e3 (4.0-10.5)
[2017-01-06] MEDS ORDERED: AMLODIPINE BESYL5 MG PO (14:47)
[2017-01-06] MEDS ORDERED: TOPROL XL 50 MG50 MG PO (14:48)
[2017-01-06] MEDS ORDERED: CATAPRES0.1 MG PO (14:50)
[2017-01-06] MEDS ORDERED: ZESTRIL40 MG PO (14:50)
[2017-01-06] MEDS ORDERED: HYDRALAZINE HCL50 MG PO (14:50)
[2017-01-06] MEDS ORDERED: AMOXICILLIN875 MG PO (14:51)
[2017-01-06] MEDS ORDERED: TOPROL XL PO (14:53)
[2017-01-06] MEDS ORDERED: NORVASC10 MG PO (14:55)
[2017-01-07 11:00] LABS: CD4 % (PNL) 10 % (30-61)
== END 2017-01-06 17:29 | disposition home or self-care (01) | DRG 974 ==
LOC: CED 03:47 → CEDOF 06:18 → C3A PCU 15:26
PROVIDERS: Emergency Medicine; Internal Medicine; Internal Medicine Nephrology
PROC: 5A1D60Z (ICD-10-PCS; principal; 2017-01-04)
DX: A41.9 Sepsis, unspecified organism (principal); B20 Human immunodeficiency virus [HIV] disease; J96.01 Acute respiratory failure with hypoxia; I13.2 Hypertensive heart and chronic kidney disease with heart failure and with stage 5 chronic kidney disease, or end stage renal disease; N18.6 End stage renal disease; I27.2 Other secondary pulmonary hypertension; I50.32 Chronic diastolic (congestive) heart failure; Z99.2 Dependence on renal dialysis; Z91.14 Patient's other noncompliance with medication regimen; F17.210 Nicotine dependence, cigarettes, uncomplicated; R73.9 Hyperglycemia, unspecified; Z86.73 Personal history of transient ischemic attack (TIA), and cerebral infarction without residual deficits; D63.1 Anemia in chronic kidney disease
CPT/HCPCS: 36415; 71010; 71020; 71250; 80048; 80076; 82308; 82553; 83036; 83605; 83880; 84484; 85025; 85027; 85610; 85730; 86361; 87804; 93005; 94660; 94760; 99285; 99291; G0365; J0696; J1644; J2543; J3370